=== PATIENT | female | born 1975 | race Caucasian/White ===

== ENCOUNTER 2021-02-08 11:03 | Emergency (ER) | payer SELFPAY ==
[~2021-02-08] VITALS: Ht 157.4 cm; Wt 95.3 kg
[2021-02-08 12:09] LABS: BILIRUBIN Negative (Negative); CLARITY Cloudy (Clear); COLOR Red (Yellow); GLUCOSE Trace (Negative); KETONE Negative (Negative)
[2021-02-08 12:10] LABS: BLOOD Negative (Negative); NITRITE Negative (Negative); SPECIFIC GRAVITY > 1.030 (1.001-1.030); UROBILINOGEN 0.2 E.U./dl (0.0-1.0)
[2021-02-08 12:11] LABS: BACTERIA 3+; EPITHELIAL CELLS 16-20; LEUKO ESTERASE Negative (Negative); MUCOUS 2+; WBC 21-30 wbc/hpf (0-5)
[2021-02-08 12:31] LABS: BASO # 0.1 10*3/uL (0.0-0.1); BASO % 0.8 % (0.0-1.0); EOS # 0.1 10*3/uL (0.0-0.4); EOS % 1.4 % (1.0-4.0); LYMPH # 3.8 10*3/uL (1.3-4.4); LYMPH % 42.6 % (27.0-41.0); MEAN CELL VOLUME 101.1 fl (81.0-99.0); MEAN CORPUSCULAR HGB 34.5 pg (27.0-31.0); MEAN CORPUSCULAR HGB CONC 34.1 g/dl (33.0-37.0); MEAN PLATELET VOLUME 10.9 fl (9.6-12.3); MONO # 0.5 10*3/uL (0.1-1.0); MONO % 5.5 % (3.0-9.0); NEUT # 4.4 10*3/uL (2.3-7.9); NEUT % 49.4 % (47.0-73.0); PLATELET COUNT AUTOMATED 201 10*3/uL (130-400); RED BLOOD COUNT 4.55 10*6/uL (4.10-5.10); RED CELL DISTRI WIDTH 11.6 % (0-14.5); WHITE BLOOD COUNT 8.9 10*3/uL (4.8-10.8)
[2021-02-08 12:41] LABS: BUN 10 mg/dl (7-24); CHLORIDE 108 mmol/L (98-107); POTASSIUM 3.7 mmol/L (3.5-5.1); SODIUM 137 mmol/L (136-145)
[2021-02-08] MEDS ORDERED: TYLENOL325 M1 PO (15:34)
[2021-02-08] MEDS ORDERED: MACROBID100 M1 PO (15:34)
[2021-02-08] MEDS ORDERED: CYCLOBENZAPRINE10 MG PO (15:34)
[2021-02-08] MEDS ORDERED: NAPROXEN250 MG PO (15:34)
== END 2021-02-08 15:27 | disposition home or self-care (01) ==
LOC: ED 11:03
PROVIDERS: Emergency Medicine
DX: N39.0 Urinary tract infection, site not specified (principal); F17.200 Nicotine dependence, unspecified, uncomplicated; Z88.0 Allergy status to penicillin